=== PATIENT | female | born 1960 | race Hispanic/Latino ===

== ENCOUNTER 2017-03-30 14:58 | Inpatient (IN) | payer OTHER, SELFPAY ==
[~2017-03-30] VITALS: Ht 157.5 cm; Wt 66.7 kg
[2017-03-30 16:02] LABS: BASOPHILS % (AUTO) 0.3 % (0.0-5.0); EOSINOPHILS % (AUTO) 0.1 % (0.0-8.0); HEMATOCRIT 38.9 % (36-48); LYMPHOCYTES % (AUTO) 13.5 % (21.0-51.0); MEAN CORPUSCULAR HEMOGLOBIN 30.3 pg (27.0-33.0); MEAN CORPUSCULAR HGB CONC 33.9 g/dL (32.0-36.0); MEAN CORPUSCULAR VOLUME 89.3 fL (79-99); MONOCYTES % (AUTO) 5.9 % (3.0-13.0); NEUTROPHILS % (AUTO) 80.2 % (40.0-77.0); PLATELET COUNT (AUTO) 505 K/uL (130-400); RED BLOOD CELL COUNT(AUTO) 4.35 MIL/uL (4.00-5.50); RED CELL DISTRIBUTION WIDTH 12.5 % (11.0-15.5)
[2017-03-30 16:10] LABS: CREATININE 0.7 mg/dL (0.5-1.5); POTASSIUM 3.8 mmol/L (3.5-5.1)
[2017-03-30 16:14] LABS: ALBUMIN 3.2 g/dL (3.5-5.0); BILIRUBIN,DIRECT 0.1 mg/dL (0.0-0.3); BILIRUBIN,TOTAL 0.5 mg/dL (0.2-1.0); TOTAL PROTEIN, SERUM 7.8 g/dL (6.0-8.3)
[2017-03-30] MEDS ORDERED: IOPAMIDOL-370 75 ML VIAL IV ONE (16:42)
[2017-03-30 16:59] LABS: APPEARANCE,URINE Clear (CLEAR); BILIRUBIN,URINE Negative (NEGATIVE); COLOR,URINE Yellow (YELLOW); GLUCOSE, URINE (UA) Negative (NEGATIVE); KETONES,URINE >=80 mg/dL (NEGATIVE); LEUKOCYTE ESTERASE ,URINE Negative (NEGATIVE); NITRATE,URINE Negative (NEGATIVE); OCCULT BLOOD,URINE Nonhemolyzed Trace (NEGATIVE); PH,URINE >=9.0 (5.0-8.0); PROTEIN,URINE Negative (NEGATIVE)
[2017-03-30 17:11] LABS: BACTERIA,URINE None Seen /HPF (None Seen); RBC,URINE 0-1 /HPF (0-1); WBC,URINE None Seen /HPF (0-1)
[2017-03-30 17:12] LABS: TRANSITIONAL EPI CELLS,URINE Few /LPF (None Seen)
[2017-03-30] MEDS ORDERED: SODIUM CHLORIDE 0.9% 1000ML 1,000 ML IV ONE (18:33)
[2017-03-30] MEDS ORDERED: METRONIDAZOLE 500MG/100ML BAG 100 ML ONE (18:34)
[2017-03-30] MEDS ORDERED: ONDANSETRON HCL 4 MG/2 ML VIAL ONE (19:33)
[2017-03-30] MEDS ORDERED: MORPHINE SULFATE 4 MG/1ML SYG ONE (19:34)
[2017-03-30] MEDS ORDERED: LEVOFLOXACIN 750 MG/D5W 150 ML 150 ML ONE (20:14)
[2017-03-30 20:30] VITALS: BP 132/72
[2017-03-30] MEDS: LACTATED RINGERS 1000ML 1,000 ML IV SCH (20:45)
[2017-03-30] MEDS ORDERED: MORPHINE SULFATE 4 MG/1ML SYG IVP PRN (21:00)
[2017-03-30] MEDS ORDERED: ONDANSETRON HCL 4 MG/2 ML VIAL IVP PRN (21:00)
[2017-03-30] MEDS: ZOSYN 3.375GM+NS 50ML 50 ML IV SCH (21:49)
[2017-03-30] MEDS: FAMOTIDINE/PF 20 MG/2 ML VIAL IV SCH (21:56)
[2017-03-30] MEDS ORDERED: EXCEDRIN (22:12)
[2017-03-30] MEDS ORDERED: [UNRECOGNIZED DRUG - OTHER] (22:12)
[2017-03-31] VITALS: BP 129/68
[2017-03-31] MEDS ORDERED: HYDRALAZINE HCL 20 MG/ML VIAL IV PRN (00:30)
[2017-03-31] MEDS ORDERED: MORPHINE SULFATE 4 MG/1ML SYG IM PRN (00:30)
[2017-03-31] MEDS: METRONIDAZOLE 500MG/100ML BAG 100 ML IV SCH ×3 (01:54→18:06)
[2017-03-31 04:00] VITALS: BP 106/60
[2017-03-31] MEDS: ONDANSETRON HCL 4 MG/2 ML VIAL IV PRN ×2 (04:26→11:12)
[2017-03-31 05:07] LABS: BASOPHILS % (AUTO) 0.4 % (0.0-5.0); EOSINOPHILS % (AUTO) 0.1 % (0.0-8.0); HEMATOCRIT 37.9 % (36-48); LYMPHOCYTES % (AUTO) 11.4 % (21.0-51.0); MEAN CORPUSCULAR HGB CONC 33.1 g/dL (32.0-36.0); MEAN CORPUSCULAR VOLUME 90.5 fL (79-99); MONOCYTES % (AUTO) 6.9 % (3.0-13.0); NEUTROPHILS % (AUTO) 81.2 % (40.0-77.0); PLATELET COUNT (AUTO) 489 K/uL (130-400); RED BLOOD CELL COUNT(AUTO) 4.19 MIL/uL (4.00-5.50); RED CELL DISTRIBUTION WIDTH 12.2 % (11.0-15.5); WHITE BLOOD COUNT (AUTO) 15.9 K/uL (4.8-10.8)
[2017-03-31 05:23] LABS: CREATININE 0.8 mg/dL (0.5-1.5); POTASSIUM 3.8 mmol/L (3.5-5.1)
[2017-03-31] MEDS: LACTATED RINGERS 1000ML 1,000 ML IV SCH ×2 (06:31→18:06)
[2017-03-31] MEDS: ZOSYN 3.375GM+NS 50ML 50 ML IV SCH ×3 (06:32→20:13)
[2017-03-31 07:30] VITALS: BP 119/61
[2017-03-31] MEDS: FAMOTIDINE/PF 20 MG/2 ML VIAL IV SCH ×2 (09:11→20:13)
[2017-03-31 11:00] VITALS: BP 144/73
[2017-03-31 16:00] VITALS: BP 131/67
[2017-03-31 20:00] VITALS: BP 116/63
[2017-04-01] VITALS: BP 115/74
[2017-04-01] MEDS: METRONIDAZOLE 500MG/100ML BAG 100 ML IV SCH ×3 (00:49→17:07)
[2017-04-01] MEDS: LACTATED RINGERS 1000ML 1,000 ML IV SCH ×2 (02:43→14:42)
[2017-04-01 04:00] VITALS: BP 119/66
[2017-04-01] MEDS: ZOSYN 3.375GM+NS 50ML 50 ML IV SCH ×3 (04:41→21:19)
[2017-04-01] MEDS: ACETAMINOPHEN-CODEINE 300/30MG TAB PO PRN ×2 (05:05→10:57)
[2017-04-01 07:30] VITALS: BP 124/72
[2017-04-01] MEDS: FAMOTIDINE/PF 20 MG/2 ML VIAL IV SCH ×2 (10:58→21:19)
[2017-04-01 11:00] VITALS: BP 124/66
[2017-04-01 16:00] VITALS: BP 100/48
[2017-04-01 20:00] VITALS: BP 138/72
[2017-04-02] VITALS: BP 139/81
[2017-04-02] MEDS: METRONIDAZOLE 500MG/100ML BAG 100 ML IV SCH ×3 (01:01→17:04)
[2017-04-02 04:00] VITALS: BP 119/68
[2017-04-02 05:05] LABS: HEMATOCRIT 34.8 % (36-48); MEAN CORPUSCULAR HEMOGLOBIN 29.3 pg (27.0-33.0); MEAN CORPUSCULAR HGB CONC 32.9 g/dL (32.0-36.0); MEAN CORPUSCULAR VOLUME 89.1 fL (79-99); PLATELET COUNT (AUTO) 435 K/uL (130-400); RED CELL DISTRIBUTION WIDTH 12.1 % (11.0-15.5); WHITE BLOOD COUNT (AUTO) 12.4 K/uL (4.8-10.8)
[2017-04-02] MEDS: LACTATED RINGERS 1000ML 1,000 ML IV SCH (05:22)
[2017-04-02] MEDS: ZOSYN 3.375GM+NS 50ML 50 ML IV SCH ×3 (05:23→22:10)
[2017-04-02 05:26] LABS: ALBUMIN 2.7 g/dL (3.5-5.0); BILIRUBIN,TOTAL 0.3 mg/dL (0.2-1.0); CREATININE 0.6 mg/dL (0.5-1.5); POTASSIUM 3.3 mmol/L (3.5-5.1); TOTAL PROTEIN, SERUM 6.3 g/dL (6.0-8.3)
[2017-04-02 07:30] VITALS: BP 127/67
[2017-04-02] MEDS: FAMOTIDINE/PF 20 MG/2 ML VIAL IV SCH ×2 (09:53→22:10)
[2017-04-02 10:56] VITALS: BP 123/72
[2017-04-02] MEDS ORDERED: LIDOCAINE HCL-MPF 1% 2ML VIAL IVP PRN (11:30)
[2017-04-02] MEDS ORDERED: POTASSIUM CHLORIDE 20MEQ/100ML 100 ML IV PRN (11:30)
[2017-04-02] MEDS ORDERED: POTASSIUM CHLORIDE 10% ELIXIR 20 MEQ/15 ML UDCUP PO PRN (11:30)
[2017-04-02] MEDS: POTASSIUM CHLORIDE 20 MEQ ERTAB PO PRN ×3 (12:45→17:04)
[2017-04-02 15:00] VITALS: BP 136/72
[2017-04-02 20:00] VITALS: BP 115/72
[2017-04-02] MEDS: ACETAMINOPHEN-CODEINE 300/30MG TAB PO PRN (22:10)
[2017-04-03] VITALS: BP 123/76
[2017-04-03] MEDS: METRONIDAZOLE 500MG/100ML BAG 100 ML IV SCH (03:08)
[2017-04-03] MEDS: LACTATED RINGERS 1000ML 1,000 ML IV SCH (03:09)
[2017-04-03 03:45] VITALS: BP 133/71
[2017-04-03] MEDS: ZOSYN 3.375GM+NS 50ML 50 ML IV SCH (07:26)
[2017-04-03 08:52] VITALS: BP 111/71
== END 2017-04-03 12:00 | disposition home or self-care (01) | DRG 392 ==
LOC: EDH 14:58 → EDHIP 14:59 → 4BH 20:02 → 4AH 20:13 → 4BH 03-31 18:02
PROVIDERS: ADMIT Family Medicine; ATTEND Family Medicine
DX: K57.20 Diverticulitis of large intestine with perforation and abscess without bleeding (principal); D47.3 Essential (hemorrhagic) thrombocythemia; D72.828 Other elevated white blood cell count; Z90.710 Acquired absence of both cervix and uterus; Z28.21 Immunization not carried out because of patient refusal
CPT/HCPCS: 36415; 74178; 80048; 80053; 80076; 81001; 83690; 84132; 85025; 85027; J1956; J2270; J2405; J2543; J3490; J7030; J7120; Q9967

== ENCOUNTER 2018-04-09 18:05 | Emergency (ER) | payer OTHER, SELFPAY ==
[~2018-04-09 18:05] MED LIST: EXCEDRIN; [UNRECOGNIZED DRUG - OTHER]
[2018-04-09] MEDS ORDERED: LORAZEPAM 2 MG/ML 1 ML VIAL ONE (18:35)
[2018-04-09 18:39] LABS: BASOPHILS % (AUTO) 0.6 % (0.0-5.0); EOSINOPHILS % (AUTO) 1.3 % (0.0-8.0); HEMATOCRIT 45.4 % (36-48); LYMPHOCYTES % (AUTO) 28.9 % (21.0-51.0); MEAN CORPUSCULAR HGB CONC 32.5 g/dL (32.0-36.0); MEAN CORPUSCULAR VOLUME 92.3 fL (79-99); MONOCYTES % (AUTO) 6.3 % (3.0-13.0); NEUTROPHILS % (AUTO) 62.9 % (40.0-77.0); NUCLEATED RED BLOOD CELLS 0.1 % (0.0-0.19); PLATELET COUNT (AUTO) 335 K/uL (130-400); RED BLOOD CELL COUNT(AUTO) 4.92 MIL/uL (4.00-5.50); RED CELL DISTRIBUTION WIDTH 12.9 % (11.0-15.5)
[2018-04-09 18:50] LABS: CREATININE 0.7 mg/dL (0.5-1.5); POTASSIUM 3.7 mmol/L (3.5-5.1)
== END 2018-04-09 19:28 | disposition home or self-care (01) ==
LOC: EDH 18:05
DX: F41.0 Panic disorder [episodic paroxysmal anxiety] (principal); Z90.710 Acquired absence of both cervix and uterus
CPT/HCPCS: 36415; 80048; 84484; 85025; 96374; 99284; J2060; 93005

== ENCOUNTER → 2023-04-25 | Outpatient (CLI) | payer OTHER ==
[~2023-04-25] MED LIST changes: +IOHEXOL 350 MG/ML 100ML INFUS..BTL IV ONE; +METOPROLOL TARTRATE 1 MG/ML 5ML VIAL IV ONE
== END | disposition home or self-care (01) ==
LOC: RAH 10:32
PROVIDERS: ATTEND Student in an Organized Health Care Education/Training Program
DX: R07.9 Chest pain, unspecified (principal)
CPT/HCPCS: 75574; J3490; Q9967